=== PATIENT | female | born 1995 | race Caucasian/White ===

== ENCOUNTER 2018-07-09 11:12 | Outpatient (CLI) | payer OTHER, SELFPAY ==
[2018-07-11 13:24] LABS: HIV-1/2 Ag & Ab Screen Negative (NEGAT)
[2018-07-12 13:05] LABS: Syphilis Serology (RPR) Negative (Negative)
[2018-07-12 13:38] LABS: Hepatitis B Surface Ag Negative (NEGAT)
[2018-07-12 14:45] LABS: Hepatitis C Ab w Rflx HCV PCR Negative (NEGAT)
== END 2018-07-09 11:32 ==
PROVIDERS: PCP Nurse Practitioner Family; Visit Provider Nurse Practitioner Family
DX: Z11.3 Encounter for screening for infections with a predominantly sexual mode of transmission (principal); Z11.4 Encounter for screening for human immunodeficiency virus [HIV]; Z11.59 Encounter for screening for other viral diseases
CPT/HCPCS: 36415; 86803; 87340; 87389; 87491; 87591; 86592

== ENCOUNTER 2018-07-09 11:30 | Outpatient (REF) | payer OTHER, SELFPAY ==
[2018-07-19 08:57] LABS: Chlamydia Result Negative; Specimen Description URINE
[2018-07-19 08:59] LABS: GC Result Negative
== END 2018-07-09 11:50 ==
LOC: LBN 11:30
PROVIDERS: PCP Nurse Practitioner Family; Visit Provider Nurse Practitioner Family
DX: Z11.3 Encounter for screening for infections with a predominantly sexual mode of transmission (principal)
CPT/HCPCS: 87491; 87591

== ENCOUNTER 2019-01-24 11:17 | Outpatient (REF) | payer OTHER, SELFPAY ==
--- NOTE | 2019-01-24 09:45 | PAPFT_PTH ---
PATIENT: TY GREENE LOC: [facility] U#:[id number] AGE/SX: 23/F ROOM: RE01/24/[address]: ANTHONY Astorga : 1995 BED: DIS: 01/24/2019 SPEC #: [id number] RECD: 01/24/19 13:04 STATUS: JELANI SHELDON #: [id number] JUANITA: 01/24/19 09:[address]: Vani Linares DEPT: [facility] Cytology RECD BY: Yoselyn Piedra ENTERED: 01/24/19 13:05 SP TYPE: PAPFT OTHR DR: Ana Trevino Tissues: 1 - CX/ENDOCX FOR PAP SMEARS Procedures: PAP THIN PREP/[facility] Screening Comments: [id number]
== END 2019-01-24 11:37 ==
LOC: LBN 11:17
PROVIDERS: PCP Nurse Practitioner Family; Visit Provider Nurse Practitioner Family
DX: Z12.4 Encounter for screening for malignant neoplasm of cervix (principal)
CPT/HCPCS: 88142